=== PATIENT | female | born 1940 | race Caucasian/White ===

== ENCOUNTER 2017-11-10 17:44 | Inpatient (IN) | payer MEDICARE, BC ==
[2017-11-10] MEDS: dilTIAZem IV PUSH 25 MG/5 ML VIAL IVP ×2 (18:35)
[2017-11-10] MEDS: IV NORMAL SALINE 1000ML BAG 1,000 ML IV ×2 (18:36)
[2017-11-10 18:41] LABS: ADD MAN DIFF? YES; BASO % 0 % (0-3); EOS # 0.1 x10^3/uL (0.0-0.7); EOS % 0 % (0-3); HEMATOCRIT 39.3 % (36.0-47.0); HEMOGLOBIN 12.5 g/dL (12.0-15.5); LYMPH # 1.3 x10^3/uL (1.0-4.8); LYMPH % 6 % (24-48); MEAN CORPUSCULAR HEMOGLOBIN 27 pg (25-35); MEAN CORPUSCULAR HGB CONC 32 g/dL (31-37); MEAN CORPUSCULAR VOLUME 84 fL (79-100); MONO # 1.8 x10^3/uL (0.0-1.1); MONO % 8 % (0-9); NEUT % 87 % (31-73); PLATELET COUNT 264 x10^3/uL (140-400); RED BLOOD COUNT 4.69 x10^6/uL (3.50-5.40); RED CELL DISTRIBUTION WIDTH 18.4 % (11.5-14.5); WHITE BLOOD COUNT 23.2 x10^3/uL (4.0-11.0)
[2017-11-10] MEDS: dilTIAZem VIAL 125 MG in IV DEXTROSE 5% 100 ML IV (18:44)
[2017-11-10 19:00] LABS: TROPONINI 0.048 ng/mL (0.000-0.055)
[2017-11-10 19:19] LABS: ANION GAP 5 (6-14); BLOOD UREA NITROGEN 44 mg/dL (7-20); BUN/CREATININE RATIO 23 (6-20); CALCIUM 10.6 mg/dL (8.5-10.1); CARBON DIOXIDE 31 mmol/L (21-32); CHLORIDE 102 mmol/L (98-107); CREATININE 1.9 mg/dL (0.6-1.0); GFR 25.7; GLUCOSE 133 mg/dL (70-99); POTASSIUM 4.7 mmol/L (3.5-5.1); SODIUM 138 mmol/L (136-145)
[2017-11-10 19:24] LABS: ALBUMIN 2.3 g/dL (3.4-5.0); ALBUMIN/GLOBULIN RATIO 0.6 (1.0-1.7); ALK PHOS 73 U/L (46-116); ALT (SGPT) 11 U/L (14-59); AST (SGOT) 13 U/L (15-37); TOTAL BILIRUBIN 0.6 mg/dL (0.2-1.0); TOTAL PROTEIN 6.3 g/dL (6.4-8.2)
[2017-11-10 19:44] LABS: INFLUENZA A PATIENT NEGATIVE (NEGATIVE); INFLUENZA B PATIENT NEGATIVE (NEGATIVE); OBC FLU VALID
[2017-11-10] MEDS ORDERED: ONDANSETRON PF 4 MG/2 ML VIAL. IV ×2 (19:45)
[2017-11-10] MEDS ORDERED: NITROGLYCERIN SUBLINGUAL 0.4 MG BOTTLE OF 25. SL ×2 (19:45)
[2017-11-10] MEDS ORDERED: fentaNYL PF VIAL 100 MCG/2 ML VIAL IV ×2 (19:45)
[2017-11-10] MEDS ORDERED: ACETAMINOPHEN 325 MG TABLET. PO ×2 (19:45)
[2017-11-10 20:06] LABS: % BANDS 13 % (0-9); % LYMPHS 8 % (24-48); % MONOS 10 % (0-10); % SEGS 69 % (35-66); ANISOCYTOSIS SLIGHT; OVALOCYTES FEW; PLT ESTIMATE ADEQUATE (ADEQUATE)
[2017-11-10 20:07] LABS: TOXIC VACUOLATION SLIGHT
[2017-11-11 01:45] LABS: ADD MAN DIFF? NO
[2017-11-11 01:52] LABS: BASO % 0 % (0-3); EOS % 0 % (0-3); HEMATOCRIT 36.1 % (36.0-47.0); HEMOGLOBIN 11.4 g/dL (12.0-15.5); LYMPH # 0.9 x10^3/uL (1.0-4.8); LYMPH % 5 % (24-48); MEAN CORPUSCULAR HEMOGLOBIN 27 pg (25-35); MEAN CORPUSCULAR HGB CONC 32 g/dL (31-37); MEAN CORPUSCULAR VOLUME 84 fL (79-100); MONO # 1.8 x10^3/uL (0.0-1.1); MONO % 10 % (0-9); NEUT # 15.5 x10^3uL (1.8-7.7); NEUT % 85 % (31-73); PLATELET COUNT 240 x10^3/uL (140-400); RED BLOOD COUNT 4.29 x10^6/uL (3.50-5.40); RED CELL DISTRIBUTION WIDTH 18.6 % (11.5-14.5); WHITE BLOOD COUNT 18.3 x10^3/uL (4.0-11.0)
[2017-11-11 02:06] LABS: TROPONINI 0.048 ng/mL (0.000-0.055)
[2017-11-11 02:30] LABS: ANION GAP 5 (6-14); BLOOD UREA NITROGEN 50 mg/dL (7-20); CALCIUM 10.5 mg/dL (8.5-10.1); CARBON DIOXIDE 31 mmol/L (21-32); CHLORIDE 102 mmol/L (98-107); CREATININE 1.8 mg/dL (0.6-1.0); GFR 27.4; GLUCOSE 121 mg/dL (70-99); POTASSIUM 4.8 mmol/L (3.5-5.1); SODIUM 138 mmol/L (136-145)
[2017-11-11 08:12] LABS: TROPONINI 0.031 ng/mL (0.000-0.055)
[2017-11-11] MEDS: DIGOXIN IV 500 MCG/2 ML AMPUL. IV ×4 (09:32→11:53)
[2017-11-11] MEDS ORDERED: ACETAMINOPHEN 325 MG TABLET. PO ×2 (11:00)
[2017-11-11] MEDS ORDERED: hydrALAZINE 20 MG/ML VIAL. IVP ×2 (11:00)
[2017-11-11] MEDS ORDERED: DOCUSATE SODIUM 100 MG CAPSULE. PO ×2 (11:00)
[2017-11-11] MEDS ORDERED: MORPHINE SULFATE 2 MG/ML DISP.SYRIN. IV ×2 (11:00)
[2017-11-11] MEDS ORDERED: IV NORMAL SALINE 250ML 250 ML IV ×2 (11:00)
[2017-11-11] MEDS: IV NORMAL SALINE 500ML BAG 250 ML IV ×2 (11:09)
[2017-11-11] MEDS: OMEGA-3 FATTY ACIDS/FISH OIL 1,000 MG CAPSULE. PO ×2 (11:18)
[2017-11-11] MEDS: APIXABAN 5 MG TABLET. PO ×4 (11:18→20:53)
[2017-11-11] MEDS: IV NORMAL SALINE 500ML BAG 500 ML IV ×4 (11:55→15:54)
[2017-11-11 18:57] LABS: BILIRUBIN,URINE NEGATIVE (NEG); CLARITY,URINE CLOUDY; COLOR,URINE YELLOW; GLUCOSE,URINE NEGATIVE (NEG); NITRITE,URINE NEGATIVE (NEG); PH,URINE 5.5; PROTEIN,URINE 30 mg/dL (NEG-TRACE)
[2017-11-11 19:07] LABS: BACTERIA,URINE MANY /HPF (0-FEW); SQUAMOUS EPITHELIAL CELL,UR FEW /LPF; WBC,URINE >40 /HPF (0-4)
[2017-11-11] MEDS: AMIODARONE HCL 200 MG TABLET. PO ×4 (20:53→21:00)
[2017-11-11] MEDS: traMADol 50 MG TABLET PO ×2 (20:54)
[2017-11-12 05:23] LABS: ADD MAN DIFF? NO
[2017-11-12 05:44] LABS: BASO % 0 % (0-3); EOS % 0 % (0-3); HEMATOCRIT 39.9 % (36.0-47.0); HEMOGLOBIN 11.9 g/dL (12.0-15.5); LYMPH # 0.9 x10^3/uL (1.0-4.8); LYMPH % 8 % (24-48); MEAN CORPUSCULAR HEMOGLOBIN 26 pg (25-35); MEAN CORPUSCULAR HGB CONC 30 g/dL (31-37); MEAN CORPUSCULAR VOLUME 87 fL (79-100); MONO # 1.3 x10^3/uL (0.0-1.1); MONO % 11 % (0-9); NEUT # 9.1 x10^3uL (1.8-7.7); NEUT % 80 % (31-73); PLATELET COUNT 205 x10^3/uL (140-400); RED BLOOD COUNT 4.57 x10^6/uL (3.50-5.40); RED CELL DISTRIBUTION WIDTH 18.4 % (11.5-14.5); WHITE BLOOD COUNT 11.3 x10^3/uL (4.0-11.0)
[2017-11-12 06:15] LABS: ANION GAP 7 (6-14); BLOOD UREA NITROGEN 53 mg/dL (7-20); CARBON DIOXIDE 26 mmol/L (21-32); CHLORIDE 103 mmol/L (98-107); CREATININE 1.3 mg/dL (0.6-1.0); GFR 39.8; GLUCOSE 90 mg/dL (70-99); POTASSIUM 4.9 mmol/L (3.5-5.1); SODIUM 136 mmol/L (136-145)
[2017-11-12] MEDS: ANTI-COAG MONITOR BY PHARMACY. MC ×2 (08:17)
[2017-11-12] MEDS: OMEGA-3 FATTY ACIDS/FISH OIL 1,000 MG CAPSULE. PO ×4 (08:46→09:00)
[2017-11-12] MEDS: APIXABAN 5 MG TABLET. PO ×4 (08:46→20:41)
[2017-11-12] MEDS: AMIODARONE HCL 200 MG TABLET. PO ×4 (08:46→20:41)
[2017-11-12] MEDS: LACTOBACILLUS RHAMNOSUS GG 1 CAPSULE. PO ×6 (10:00→20:41)
[2017-11-12] MEDS: CIPROFLOXACIN HCL 250 MG TABLET. PO ×2 (10:47)
[2017-11-12] MEDS: CHOLECALCIFEROL (VITAMIN D3) 1,000 UNIT TABLET PO ×2 (13:00)
[2017-11-12] MEDS: CHOLECALCIFEROL (VITAMIN D3) 5,000 UNIT CAPSULE PO ×2 (16:00)
[2017-11-12 17:23] LABS: PHOSPHORUS 2.7 mg/dL (2.6-4.7)
[2017-11-13 05:57] LABS: ADD MAN DIFF? NO
[2017-11-13 06:14] LABS: BASO % 0 % (0-3); EOS # 0.1 x10^3/uL (0.0-0.7); EOS % 1 % (0-3); HEMATOCRIT 39.4 % (36.0-47.0); HEMOGLOBIN 11.7 g/dL (12.0-15.5); LYMPH # 1.2 x10^3/uL (1.0-4.8); LYMPH % 12 % (24-48); MEAN CORPUSCULAR HEMOGLOBIN 26 pg (25-35); MEAN CORPUSCULAR HGB CONC 30 g/dL (31-37); MEAN CORPUSCULAR VOLUME 87 fL (79-100); MONO # 1.3 x10^3/uL (0.0-1.1); MONO % 13 % (0-9); NEUT # 7.4 x10^3uL (1.8-7.7); NEUT % 75 % (31-73); PLATELET COUNT 244 x10^3/uL (140-400); RED BLOOD COUNT 4.53 x10^6/uL (3.50-5.40); WHITE BLOOD COUNT 9.9 x10^3/uL (4.0-11.0)
[2017-11-13 06:17] LABS: BLOOD UREA NITROGEN 49 mg/dL (7-20); CALCIUM 11.1 mg/dL (8.5-10.1); CARBON DIOXIDE 32 mmol/L (21-32); CHLORIDE 104 mmol/L (98-107); CREATININE 1.1 mg/dL (0.6-1.0); GFR 48.3; GLUCOSE 119 mg/dL (70-99); SODIUM 137 mmol/L (136-145)
[2017-11-13 06:23] LABS: ANION GAP 1 (6-14)
[2017-11-13 06:24] LABS: POTASSIUM 5.7 mmol/L (3.5-5.1)
[2017-11-13 06:35] LABS: THYROID STIM HORMONE (TSH) 0.844 uIU/mL (0.358-3.74)
[2017-11-13] MEDS: CHOLECALCIFEROL (VITAMIN D3) 5,000 UNIT CAPSULE PO ×2 (08:48)
[2017-11-13] MEDS: DIGOXIN 125 MCG TABLET. PO ×2 (08:48)
[2017-11-13] MEDS: CHOLECALCIFEROL (VITAMIN D3) 1,000 UNIT TABLET PO ×2 (08:48)
[2017-11-13] MEDS: APIXABAN 5 MG TABLET. PO ×2 (08:49)
[2017-11-13] MEDS: LACTOBACILLUS RHAMNOSUS GG 1 CAPSULE. PO ×4 (08:49→21:00)
[2017-11-13] MEDS: AMIODARONE HCL 200 MG TABLET. PO ×2 (08:49)
[2017-11-13] MEDS: OMEGA-3 FATTY ACIDS/FISH OIL 1,000 MG CAPSULE. PO ×2 (08:50)
[2017-11-13] MEDS: SODIUM POLYSTYRENE SULFONATE 15 GM/60 ML ORAL.SUSP. PO ×2 (09:43)
[2017-11-13] MEDS: IV NORMAL SALINE 1000ML BAG 1,000 ML IV ×4 (09:43→18:01)
[2017-11-13] MEDS: DEXTROSE 50% 25 GM / 50ML DISP.SYRIN. IV ×2 (09:57)
[2017-11-13] MEDS: INSULIN REGULAR 100 UNIT/ML 10ML VIAL. IV ×2 (09:57)
[2017-11-13] MEDS ORDERED: EPINEPHrine SYRINGE 1 MG/10 ML SYRINGE ×2 (10:00)
[2017-11-13] MEDS ORDERED: SODIUM BICARB ADULT 8.4% 50 MEQ/50 ML DISP.SYRIN. ×2 (10:00)
[2017-11-13] MEDS ORDERED: MIDAZOLAM HCL/PF 5 MG/5 ML VIAL. ×2 (10:00)
[2017-11-13] MEDS: traMADol 50 MG TABLET PO ×2 (10:07)
[2017-11-13] MEDS: ONDANSETRON PF 4 MG/2 ML VIAL. IV ×2 (14:04)
[2017-11-13 14:44] LABS: POC GLUCOSE 134 mg/dL (70-99)
[2017-11-13] MEDS ORDERED: PROPOFOL 100 ML IV ×2 (15:00)
[2017-11-13] MEDS ORDERED: IV NORMAL SALINE 1000ML BAG 1,000 ML IV ×2 (15:00)
[2017-11-13] MEDS ORDERED: fentaNYL PF VIAL 100 MCG/2 ML VIAL IV ×2 (15:00)
[2017-11-13] MEDS ORDERED: MIDAZOLAM HCL/PF 2 MG/2 ML VIAL. IV ×2 (15:00)
[2017-11-13] MEDS ORDERED: cefTRIAXone IV Push 1 GM VIAL. IVP ×2 (15:00)
[2017-11-13] MEDS: LIDOCAINE (700MG/PATCH) PATCH. TD ×2 (15:00)
[2017-11-13 15:24] LABS: POC GLUCOSE 159 mg/dL (70-99)
[2017-11-13] MEDS ORDERED: HEPARIN for IV BOLUS 10,000 UNIT/10 ML VIAL. IV ×4 (15:30)
[2017-11-13 16:52] LABS: BASO % 0 % (0-3); EOS % 0 % (0-3); HEMATOCRIT 36.6 % (36.0-47.0); LYMPH # 1.8 x10^3/uL (1.0-4.8); LYMPH % 8 % (24-48); MEAN CORPUSCULAR HEMOGLOBIN 26 pg (25-35); MEAN CORPUSCULAR HGB CONC 30 g/dL (31-37); MEAN CORPUSCULAR VOLUME 87 fL (79-100); MONO # 1.3 x10^3/uL (0.0-1.1); MONO % 6 % (0-9); NEUT # 19.3 x10^3uL (1.8-7.7); NEUT % 86 % (31-73); PLATELET COUNT 333 x10^3/uL (140-400); RED BLOOD COUNT 4.22 x10^6/uL (3.50-5.40); RED CELL DISTRIBUTION WIDTH 17.9 % (11.5-14.5); WHITE BLOOD COUNT 22.5 x10^3/uL (4.0-11.0)
[2017-11-13 16:54] LABS: ADD MAN DIFF? YES
[2017-11-13 17:03] LABS: ANION GAP 12 (6-14); BLOOD UREA NITROGEN 44 mg/dL (7-20); CALCIUM 9.9 mg/dL (8.5-10.1); CARBON DIOXIDE 25 mmol/L (21-32); CHLORIDE 105 mmol/L (98-107); CREATININE 1.3 mg/dL (0.6-1.0); GFR 39.8; GLUCOSE 220 mg/dL (70-99); MAGNESIUM 2.1 mg/dL (1.8-2.4); POTASSIUM 4.9 mmol/L (3.5-5.1); SODIUM 142 mmol/L (136-145)
[2017-11-13 17:15] LABS: TROPONINI 0.147 ng/mL (0.000-0.055)
[2017-11-13 17:17] LABS: CKMB INDEX 4.5 % (0-4); CKMB MASS 3.4 ng/mL (0.0-3.6); CREATINE KINASE 76 U/L (26-192)
[2017-11-13] MEDS: HEPARIN 25,000UTS/500ML PREMIX 500 ML IV ×2 (17:55)
[2017-11-13] MEDS: NOREPINEPHRIN PREMIX 250 ML IV ×4 (17:57→18:28)
[2017-11-13] MEDS: VASOPRESSIN 40 UNIT in IV DEXTROSE 5% 100 ML IV (17:58)
[2017-11-13] MEDS: MIDAZOLAM 100MG/100ML PREMIX 100 ML IV ×4 (17:58→21:35)
[2017-11-13 18:05] LABS: BASE EXCESS ABG -8 mmol/L (-3-3); HCO3 ABG 15 mmol/L (21-28); PCO2 ABG 25 mmHg (35-46); PO2 ABG 455 mmHg (65-108); SAT O2 ABG 100 % (92-99)
[2017-11-13 18:08] LABS: FIO2 ABG 100% vent ac18 550 5
[2017-11-13] MEDS: SODIUM BICARB ADULT 8.4% 50 MEQ/50 ML DISP.SYRIN. IV ×4 (18:20→20:21)
[2017-11-13 18:33] LABS: % ATYL 3 % (0-0); % BANDS 11 % (0-9); % LYMPHS 6 % (24-48); % MONOS 1 % (0-10); NUCLEATED RBC 2; PLT ESTIMATE ADEQUATE (ADEQUATE)
[2017-11-13 18:34] LABS: % MYELOS 2 % (0-0); % SEGS 77 % (35-66); ANISOCYTOSIS SLIGHT
[2017-11-13] MEDS: VANCOMYCIN PER PHARMACY MC ×2 (20:36)
[2017-11-13 20:42] LABS: HEMATOCRIT 33.7 % (36.0-47.0); MEAN CORPUSCULAR HEMOGLOBIN 26 pg (25-35); MEAN CORPUSCULAR HGB CONC 30 g/dL (31-37); MEAN CORPUSCULAR VOLUME 86 fL (79-100); PLATELET COUNT 303 x10^3/uL (140-400); RED CELL DISTRIBUTION WIDTH 17.9 % (11.5-14.5); WHITE BLOOD COUNT 20.6 x10^3/uL (4.0-11.0)
[2017-11-13 20:46] LABS: ISTAT BE VENOUS -4 mmol/L (0-3); ISTAT HCO3 VEN 23 mmol/L (24-28); ISTAT PCO2 VEN 50 mmHg (41-51); ISTAT PH VEN 7.28 (7.32-7.42); ISTAT PO2 VEN 75 mmHg (20-40); ISTAT SAT O2 VEN 93 %; ISTAT TCO2 VEN 25 mmol/L (21-32); TOSPEC VEN
[2017-11-13 20:56] LABS: ALBUMIN 1.5 g/dL (3.4-5.0); ALBUMIN/GLOBULIN RATIO 0.5 (1.0-1.7); ALK PHOS 67 U/L (46-116); ALT (SGPT) 109 U/L (14-59); ANION GAP 13 (6-14); AST (SGOT) 122 U/L (15-37); BLOOD UREA NITROGEN 41 mg/dL (7-20); BUN/CREATININE RATIO 29 (6-20); CALCIUM 8.4 mg/dL (8.5-10.1); CARBON DIOXIDE 25 mmol/L (21-32); CHLORIDE 108 mmol/L (98-107); CREATININE 1.4 mg/dL (0.6-1.0); GFR 36.6; GLUCOSE 199 mg/dL (70-99); POTASSIUM 4.5 mmol/L (3.5-5.1); SODIUM 146 mmol/L (136-145); TOTAL BILIRUBIN 1.1 mg/dL (0.2-1.0); TOTAL PROTEIN 4.6 g/dL (6.4-8.2)
[2017-11-13] MEDS: VANCOMYCIN 2 GM in IV DEXTROSE 5 %-0.45 % NACL 500 ML IV (21:26)
[2017-11-13] MEDS: HYDROCORTISONE SOD SUCC/PF 100 MG/2 ML VIAL. IV ×2 (21:29)
[2017-11-13] MEDS: CEFEPIME HCL IV Push 1 GM VIAL. IVP ×2 (21:32)
[2017-11-13] MEDS ORDERED: CEFEPIME HCL 1 GM in IV DEXTROSE 5% 50 ML IV ×4 (22:00)
[2017-11-13] MEDS: EPINEPHrine VIAL 8 MG in IV NORMAL SALINE 250ML 250 ML IV (22:19)
[2017-11-14 06:12] LABS: CALCIUM PTH 10.4 mg/dL (8.7-10.3); CREATININE PTH 1.15 mg/dL (0.57-1.00); PHOSPHORUS PTH 2.7 mg/dL (2.5-4.5); PTH INTACT 118 pg/mL (15-65); eGFR AFRICAN-AMER 53 (>59); eGFR NON AFRICAN-AMER 46 (>59)
[2017-11-14] MEDS ORDERED: IV NORMAL SALINE 1000ML BAG 1,000 ML IV ×2 (19:30)
[2017-11-14] MEDS ORDERED: VANCOMYCIN 1.25 GM in IV DEXTROSE 5 %-0.45 % NACL 500 ML IV (21:00)
[2017-11-15 09:43] LABS: VITAMIN-B12 1675 pg/mL (247-911)
[2017-11-15 12:16] LABS: CALCIUM PTH 10.4 mg/dL (8.7-10.3); CREATININE PTH 1.03 mg/dL (0.57-1.00); PHOSPHORUS PTH 2.9 mg/dL (2.5-4.5); PTH INTACT 89 pg/mL (15-65); eGFR AFRICAN-AMER 61 (>59); eGFR NON AFRICAN-AMER 53 (>59)
[2017-11-19] MEDS ORDERED: AMIODARONE HCL 200 MG TABLET. PO ×2 (09:00)
== END 2017-11-14 02:03 | disposition expired | DRG 208 ==
LOC: 1 WEST ICU 11-13 15:08 → ER 17:44 → 2 NORTH 19:39
PROVIDERS: Internal Medicine
PROC: 5A1935Z Respiratory Ventilation, Less than 24 Consecutive Hours (ICD-10-PCS; principal; 2017-11-10)
PROC: 02HV33Z Insertion of Infusion Device into Superior Vena Cava, Percutaneous Approach (ICD-10-PCS; 2017-11-13)
DX: J96.00 Acute respiratory failure, unspecified whether with hypoxia or hypercapnia (principal); E43 Unspecified severe protein-calorie malnutrition; G93.41 Metabolic encephalopathy; I13.0 Hypertensive heart and chronic kidney disease with heart failure and stage 1 through stage 4 chronic kidney disease, or unspecified chronic kidney disease; I27.20 Pulmonary hypertension, unspecified; E87.5 Hyperkalemia; N17.9 Acute kidney failure, unspecified; I95.9 Hypotension, unspecified; N18.4 Chronic kidney disease, stage 4 (severe); I27.29 Other secondary pulmonary hypertension; E83.52 Hypercalcemia; I50.22 Chronic systolic (congestive) heart failure; I42.9 Cardiomyopathy, unspecified; N39.0 Urinary tract infection, site not specified; I46.9 Cardiac arrest, cause unspecified; I48.0 Paroxysmal atrial fibrillation; Z96.652 Presence of left artificial knee joint; E78.5 Hyperlipidemia, unspecified; I25.10 Atherosclerotic heart disease of native coronary artery without angina pectoris; I48.2 Chronic atrial fibrillation; Z60.2 Problems related to living alone; Z79.01 Long term (current) use of anticoagulants; Z82.49 Family history of ischemic heart disease and other diseases of the circulatory system; Z83.3 Family history of diabetes mellitus; Z90.710 Acquired absence of both cervix and uterus; Z91.19 Patient's noncompliance with other medical treatment and regimen; Z95.0 Presence of cardiac pacemaker; Z88.0 Allergy status to penicillin; Z88.8 Allergy status to other drugs, medicaments and biological substances
CPT/HCPCS: 36415; 36600; 70450; 71045; 80048; 80053; 81001; 82306; 82553; 82607; 82803; 82805; 82962; 83735; 83970; 84100; 84443; 84484; 85007; 85025; 85027; 87804; 87804-59; 93005; 93306; 94002; 95816; 96365; 96366; 96375; 97162-GP; 97165-GO; 99285-25; J0171; J0692; J1160; J1265; J1720; J1815; J1956; J2250; J2405; J3370; J3490; J7030; J7040; J7042; J7050